=== PATIENT | female | born 1975 | race Caucasian/White ===

== ENCOUNTER 2017-11-22 10:08 | Emergency (ER) | payer BC, OTHER ==
[~2017-11-22] VITALS: Ht 175.3 cm; Wt 95.0 kg
[~2017-11-22 10:08] MED LIST: CYCL10TA PO; FENT12DI T-DERMAL; IBUP1TAB7 PO; TRAM50 PO
[2017-11-22 10:22] VITALS: BP 113/65; PULSE 76; RESP 16; TEMP 97.6; O2SAT 97
[2017-11-22] MEDS ORDERED: BENZ100 PO (12:05)
[2017-11-22] MEDS ORDERED: AZIT250T3 PO (12:05)
--- NOTE | 2017-11-22 12:05 | PD ---
HPI Chief Complaint: Cold / Flu Symptoms Time Seen by Provider: 11:23 Travel History International Travel<30 days: No Contact w/Intl Traveler<30days: No Traveled to known affect area: No History of Present Illness HPI This is a 42-year-old female here with a productive cough and reported green sputum for over a week. She reports subjective fevers. Symptom severity is moderate. No aggravating or alleviating factors. No chest pain or shortness of breath. PFSH Past Medical History Atrial Fibrillation: Yes Cancer: No Cardiovascular Problems: No Chemotherapy: No Diminished Hearing: No Endocrine: No Gastrointestinal Disorders: No Genitourinary: No Implanted Vascular Access Dvce: No Musculoskeletal: Yes (BACK PAIN, disc tears, awaiting surgery) Neurologic: No Psychiatric: No Reproductive: No Respiratory: No Radiation Therapy: No Tetanus Vaccination: < 5 Years Influenza Vaccination: No ?: Unknown LMP: now : 1 Para: 1 Past Surgical History AICD: No Arteriovenous Shunt: No Insulin Pump: No Joint Replacement: No Pacemaker: No Other Surgery: Yes Social History Alcohol Use: Yes (RARELY LAST DRINK THREE MONTHS AGO) Tobacco Use: No Substance Use: No Allergies-Medications (Allergen,Severity, Reaction): Coded Allergies: No Known Allergies (Verified , 08/16/16) Reported Meds & Prescriptions Reported Meds & Active Scripts Active Reported Fentanyl Patch 72 HR (Fentanyl) 12 Mcg/Hr Patch 1 Patch T-DERMAL Q72H Remove old patch when new one placed. Review of Systems Except as stated in HPI: all other systems reviewed are Neg General / Constitutional: No: Fever Eyes: No: Visual changes HENT: No: Headaches Cardiovascular: No: Chest Pain or Discomfort Respiratory: Positive: Cough Gastrointestinal: No: Abdominal Pain Genitourinary: No: Dysuria Physical Exam Narrative GENERAL: Alert well-appearing 42-year-old female SKIN: Warm and dry. HEAD: Normocephalic. EYES: No scleral icterus. No injection or drainage. NECK: Supple CARDIOVASCULAR: Regular rate and rhythm. No murmur appreciated RESPIRATORY: Breath sounds equal bilaterally. No accessory muscle use. Rhonchi GASTROINTESTINAL: Abdomen soft, non-tender, nondistended. MUSCULOSKELETAL: No cyanosis, or edema. BACK: Nontender without obvious deformity. No CVA tenderness. Data Data Last Documented VS Vital Signs Date Time Temp Pulse Resp B/P (MAP) Pulse Ox O2 Delivery O2 Flow Rate FiO2 3/24/18 11:14 (81) 11/22/17 10:22 97.6 76 16 97 Room Air MDM Medical Decision Making Medical Screen Exam Complete: Yes Emergency Medical Condition: Yes Differential Diagnosis Bronchitis, pneumonia, URI Narrative Course This is a 42-year-old female here with rhonchorous cough and colored sputum 1 week. No signs are stable. Patient is well-appearing. She was treated for bronchitis Diagnosis Primary Impression: Bronchitis Referrals: Primary Care Physician Additional Instructions: Medication as directed. Stay well hydrated. Follow-up the primary doctor. Scripts Benzonatate (Tessalon Perles) 100 Mg Cap 200 MG PO TID Y for COUGH, #12 CAP 0 Refills Prov: Chuyita Mccrary 11/22/17 Azithromycin (Azithromycin) 250 Mg Tab 250 MG PO DIRECTED for Infection, #6 TAB 0 Refills Take 2 tabs (500 mg) on day 1 then 1 tab daily x 4 days. Prov: Chuyita Mccrary 11/22/17 Disposition: 01 DISCHARGE HOME Condition: Stable Chuyita Mccrary Nov 22, 2017 12:05
== END 2017-11-22 12:15 | disposition home or self-care (01) ==
LOC: PHED 10:08 → PHEFT 12:15
DX: J40 Bronchitis, not specified as acute or chronic (principal)
CPT/HCPCS: 99283